=== PATIENT | male | born 1945 | race Caucasian/White ===

== ENCOUNTER 2021-11-25 15:38 | Inpatient (IN) | payer OTHER, BC ==
[~2021-11-25] VITALS: Ht 180.3 cm; Wt 95.3 kg
[2021-11-25] MEDS ORDERED: GABAPENTIN 100100 MG PO (21:59)
[2021-11-25] MEDS ORDERED: LIPITOR 40 MG T40 M1 PO (22:00)
[2021-11-25] MEDS ORDERED: OMEPRAZOLE40 MG PO (22:01)
[2021-11-25] MEDS ORDERED: METOPROLOL TART25 MG PO (22:01)
[2021-11-25] MEDS ORDERED: OXYBUTYNIN CHLO15 MG PO (22:03)
[2021-11-25 23:24] VITALS: BP 123/66
[2021-11-25 23:37] LABS: HEMATOCRIT 32.8 % (42.0-52.0); HEMOGLOBIN 10.2 gm/dL (14.0-18.0); MCH 28.4 pg (26.0-34.0); MCV 91.9 fL (80.0-100.0); RBC 3.57 mil/uL (4.50-6.00); RDW 17.2 % (10.5-14.5); WBC 14.8 thou/uL (4.0-11.0)
[2021-11-25 23:38] LABS: CALCIUM 9.6 mg/dL (8.5-10.1); CREATININE 6.3 mg/dL (0.7-1.3); POTASSIUM 5.3 mmol/L (3.5-5.1)
--- NOTE | 2021-11-25 23:41 | NUR ---
[facility] EMS ARRIVED WITH PT. RN IMMUNOLOGY AND LEGAL WORD PROCESSOR CALLED TO LET THEM BE AWARE PT NOW HERE. ADMISSION COMPLETED, MED REC DONE, ALLERGIES ENTERED, AND INTERVENTIONS SET. PT A/0X3 WITH SOME CONFUSION. MAX ASSIST WITH A WALKER. PT STATES HE HAS NOT BEEN ABLE TO WALK WITH ASSISTANCE SINCE COOKIE COVID AROUND 11/20. PRIOR TO THAT PT WORKING WITH PT SINCE HAVING DURAL SPINAL FISTULA. PT ONLY REQUEST WAS FOR TRAMADOL AND GABAPENTIN. SUPRA PUBIC IN PLACE.
[2021-11-26 03:39] VITALS: BP 123/76
[2021-11-26 07:40] VITALS: BP 127/59
[2021-11-26 07:45] VITALS: BP 104/69
[2021-11-26 15:29] VITALS: BP 108/70
--- NOTE | 2021-11-26 18:20 | NUR ---
PATIENT IS ALERT AND ORIENTED X4. PATIENT IS ON ENHANCED PRECAUTIONS. SINATNET IS ON 2L OF OXYGEN VIA NASAL CANULA THIS SHIFT. PATIENT IS MS/ TELE AND HAS BEEN RUNNING SINUS RHYTHM THIS SHIFT. PATIENT HAS A DIALYSIS CATH THAT IS ON IS RIGHT CHEST. PATIENT HAS A SUPRAPUBIC CATHETER THAT IS PATENT AND PRESENT. LYNDON HAS GENERALZIED SCARING/ BRUISING ON HIS BODY. PATINET HAS BEEN TURNED EVERY TWO HOURS ORDERED. PATIENT HAS AN IV IN HIS RIGHT AC THAT IS CURRENTLY INFUSING WITH ANITBIOTICS. PATIENT WILL CONTINUE TO BE MONITORED.
[2021-11-26 18:45] LABS: URINE BILIRUBIN NEGATIVE (Negative); URINE BLOOD TRACE (Negative); URINE CLARITY CLEAR; URINE COLOR YELLOW; URINE GLUCOSE-RANDOM* NEGATIVE (Negative); URINE KETONES NEGATIVE (Negative); URINE LEUKOCYTES-REFLEX TRACE (Negative); URINE NITRITE-REFLEX NEGATIVE (Negative); URINE PROTEIN (DIPSTICK) 1+ (Negative); URINE SPECIFIC GRAVITY 1.025 (1.005-1.035); URINE UROBILINOGEN 0.2 E.U./dl (0.2-1.0)
[2021-11-26 19:45] VITALS: BP 121/68
[2021-11-27 04:35] VITALS: BP 118/64
[2021-11-27 07:14] LABS: CALCIUM 9.4 mg/dL (8.5-10.1); CREATININE 6.5 mg/dL (0.7-1.3); POTASSIUM 5.7 mmol/L (3.5-5.1)
[2021-11-27 07:18] LABS: ALBUMIN 2.6 g/dL (3.4-5.0)
[2021-11-27 07:45] VITALS: BP 134/77
--- NOTE | 2021-11-27 07:48 | HC ---
[facility] [place] [address] CONSULTATION Name: KULDEEP COATES Room #: 362-P [facility] IN M.R.#: [id number] Admission: 11/25/21 Attend Phys: Chucho Sr MD Discharge: Date of : 45 Report #: [id number] THIS REPORT FOR: cc: FAM - Family physician unknown FAM - Family physician unknown Jeferson Campbell MD ~ DATE OF SERVICE: 11/26/2021 INFECTIOUS DISEASE CONSULTATION ATTENDING PHYSICIAN: Dr. Sr. REASON FOR EVALUATION: Complicated urinary tract infection with sepsis, also COVID-19 infection. HISTORY OF PRESENT ILLNESS: Chart reviewed. The patient examined. This is a 76-year-old gentleman with fairly extensive medical history, has known history of prostate cancer, end-stage renal disease, on dialysis; obstructive sleep apnea, who presented to outside hospital on 11/20. He was diagnosed with COVID-19 infection, also felt to have a complicated urinary tract infection. He notes he does make urine in spite of his end-stage renal disease. He primarily complains of weakness and fatigue at this point. Denies significant pulmonary related complaints. He was transferred for ongoing care. He is scheduled to undergo dialysis today. He has been continued on combination therapy with Zosyn and vancomycin. He has had no recent fevers at this point, he is maintained on room air. ALLERGIES: Listed to SULFA. CURRENT MEDICATIONS: Include vancomycin, diclofenac, oxybutynin, metoprolol, atorvastatin, dexamethasone, ascorbic acid, pantoprazole, Zosyn, zinc, tramadol. PAST MEDICAL HISTORY: As described above, prostate cancer, hypertension, hyperlipidemia, anemia, chronic renal failure, on hemodialysis, neurogenic bladder, obstructive sleep apnea. SOCIAL HISTORY: Former smoker, occasional ethanol, no illicit drug use. FAMILY HISTORY: Noncontributory. REVIEW OF SYSTEMS: Otherwise, unremarkable. PHYSICAL EXAMINATION: GENERAL: He is alert, cooperative, iqij-iz-vaurdzve distress, generally lucid. VITAL SIGNS: Temperature 98, pulse 102, respirations 16, blood pressure 104/69. SKIN: Warm, dry, no rashes. [facility] [address] [place] [address] CONSULTATION Name: KULDEEP COATES Barry Room #: 362-P [facility] IN M.R.#: [id number] Admission: 11/25/21 Attend Phys: Chucho Sr MD Discharge: Date of : 45 Report #: [id number] HEENT: Normocephalic. Extraocular muscles intact. NECK: Supple. LUNGS: Diminished breath sounds, has some basilar crackles. HEART: Tachycardic, regular, do not appreciate a murmur. ABDOMEN: Mildly distended, somewhat firm. No peritoneal signs. GENITOURINARY AND RECTAL: Deferred. LABORATORY DATA: Ferritin was markedly elevated at 2020. Procalcitonin 0.86. Sed rate of 103. Lactic acid 0.9. Electrolytes: Sodium 132, potassium 5.3, chloride 99, bicarbonate is 17, anion gap of 16, BUN and creatinine 80 and 6.3, estimated GFR of 9. CBC: White count 14.8, H and H 10.2 and 32.8, platelets of 378. ASSESSMENT AND PLAN: 1. COVID-19 infection. 2. Complicated urinary tract infection. The patient still produces urine in spite of end-stage renal disease and does have neurogenic bladder requiring chronic Sanchez catheter. We do not have those results available. We will recheck the urinalysis for culture as required. Continue empiric therapy, go ahead and repeat chest x-ray. At this point, he is not overtly toxic. He is certainly at risk for clinical deterioration. Continue to monitor expectantly. Supportive care. <ELECTRONICALLY SIGNED> By: Jeferson Campbell MD 11/27/21 [id number] Jeferson Campbell MD /nt
--- NOTE | 2021-11-27 13:33 | NUR ---
INITIAL ASSESSMENT: Received consult. ROLAND reviewed chart and spoke with nursing and attending physician. Pt was transferred to [facility] from [facility]. Pt placed in Enhanced Isolation due to COVID. Pt is afebrile and on room air. Pt is on IV abx. Pt with hx ESRD and is on dialysis. Therapy has been ordered. ROLAND spoke with pt via phone. Introduced role of SW. Pt is alert/orientated x 4. Pt reports he lives at home with his in [place]. Prior to admission, pt was independent with ADLs. Pt has a cane and walker at home to use as needed. There is a ramp to enter the house. No steps inside. Pt reports he has used HH in the past, but unsure name of provider. Pt is currently going to outpatient physical therapy at [facility]. Pt goes to dialysis at the [facility] in [place]. Pt states he goes on Mondays and Fridays. Pt's PCP is Dr. Silvestre Gil. Pt states he will not have any discharge needs at this time. ROLAND left voice message for pt's dialysis clinic to provide an update. Plan is for pt to discharge home when medically stable. ROLAND is following to assist as needed with discharge planning.
[2021-11-27 15:29] VITALS: BP 120/69
--- NOTE | 2021-11-27 18:30 | NUR ---
ASSUMED PATIENT CARE AT 0700. A/0 X4. VSS. MENA PAIN. MAX ASSISTED TRANSFER. WILL HAVE HD TOMORROW. SLOWLY TOWARDS POC GOALS.
[2021-11-27 19:06] VITALS: BP 127/81
[2021-11-28 02:26] VITALS: BP 132/7
--- NOTE | 2021-11-28 06:36 | NUR ---
Patient making slow progress towards outcome goals. Vital signs and rhythm stable. High fall risks, fall precautions in place. Cepacol lozenges for sore throat with relief. Dialysis orders for today.
[2021-11-28 07:30] VITALS: BP 127/59
[2021-11-28 11:58] VITALS: BP 127/59
--- NOTE | 2021-11-28 12:00 | NUR ---
ROLAND reviewed chart and spoke with nursing and attending physician. Pt remains in Enhanced Isolation due to COVID. Pt is afebrile and on room air. Pt is on IV abx. Pt might be ready to discharge home later today or over the weekend. Awaiting input from ID at this time. ROLAND received call from Bharati at [facility] dialysis clinic, who states pt does go to their clinic for dialysis on Mondays and Fridays, per pt's request. Pt was on dialysis three times a week and then requested to stop Wednesday dialysis. Recommendation made by nephrology to consider starting dialysis on Wednesdays. ROLAND faxed clinical info to [facility]. Pt is able to start his regular outpatient dialysis on Wednesday, 12/01. Pt was supposed to temporarily go to the Renal clinic while in isolation for COVID. Pt did not show up for any dialysis treatments at that clinic. Discharge ppwk will need to be faxed to the dialysis clinic when available. No additional SW discharge needs identified at this time. ROLAND is following to assist as needed with discharge planning. [facility]--
[2021-11-28 12:01] LABS: HEMATOCRIT 30.6 % (42.0-52.0); HEMOGLOBIN 9.4 gm/dL (14.0-18.0); MCH 28.3 pg (26.0-34.0); MCHC 30.8 g/dL (28.0-37.0); MCV 92.1 fL (80.0-100.0); RBC 3.32 mil/uL (4.50-6.00); RDW 17.1 % (10.5-14.5); WBC 19.5 thou/uL (4.0-11.0)
[2021-11-28 12:14] LABS: CALCIUM 9.8 mg/dL (8.5-10.1); CREATININE 6.1 mg/dL (0.7-1.3)
[2021-11-28] MEDS ORDERED: VITAMIN D325 MC2 PO (14:10)
[2021-11-28] MEDS ORDERED: PREDNISONE 20 M20 M1 PO (14:10)
[2021-11-28] MEDS ORDERED: AUGMENTIN 500-1 EACH PO (14:10)
[2021-11-28] MEDS ORDERED: ZINC SULFATE50 MG PO (14:10)
[2021-11-28] MEDS ORDERED: VITAMIN B-1100 M2 PO (14:10)
[2021-11-28] MEDS ORDERED: ACEROLA C500 MG PO (14:10)
[2021-11-28] MEDS ORDERED: ARTHRITIS PAIN100 GM TOP (14:10)
[2021-11-28] MEDS ORDERED: GUAIFENESIN DM S5 ML PO (14:10)
--- NOTE | 2021-11-28 16:12 | NUR ---
ASSUMED PATIENT CARE AT 0700. A/O X4. HAD HD TODAY. 1.5L FLUID MOVED. VSS. WILL DC TO HOME SOON.
== END 2021-11-28 17:42 | disposition home or self-care (01) | DRG 871 ==
LOC: 3W 15:38
PROVIDERS: Hospitalist; Nurse Practitioner Family; Specialist; ADMIT Internal Medicine; ATTEND Internal Medicine
PROC: 5A1D70Z Performance of Urinary Filtration, Intermittent, Less than 6 Hours Per Day (ICD-10-PCS; principal; 2021-11-28)
DX: A41.9 Sepsis, unspecified organism (principal); U07.1 COVID-19; N18.6 End stage renal disease; J12.82 Pneumonia due to coronavirus disease 2019; N39.0 Urinary tract infection, site not specified; I12.0 Hypertensive chronic kidney disease with stage 5 chronic kidney disease or end stage renal disease; E46 Unspecified protein-calorie malnutrition; G82.20 Paraplegia, unspecified; G62.9 Polyneuropathy, unspecified; E55.9 Vitamin D deficiency, unspecified; E78.5 Hyperlipidemia, unspecified; N31.9 Neuromuscular dysfunction of bladder, unspecified; R53.81 Other malaise; Z96.643 Presence of artificial hip joint, bilateral; E66.01 Morbid (severe) obesity due to excess calories; D64.9 Anemia, unspecified; Z96.653 Presence of artificial knee joint, bilateral; M19.90 Unspecified osteoarthritis, unspecified site; G47.33 Obstructive sleep apnea (adult) (pediatric); Z85.46 Personal history of malignant neoplasm of prostate; Z87.442 Personal history of urinary calculi; Z85.820 Personal history of malignant melanoma of skin; Z83.3 Family history of diabetes mellitus; Z88.2 Allergy status to sulfonamides; Z87.891 Personal history of nicotine dependence; Z68.29 Body mass index [BMI] 29.0-29.9, adult
CPT/HCPCS: 10879; 32100